=== PATIENT | female | born 1960 | race American Indian/Alaskan Native ===

== ENCOUNTER 2020-06-18 07:23 | Outpatient (CLI) | payer MEDICAID ==
--- NOTE | 2020-06-18 10:38 | PET Report ---
PET/CT HISTORY: R91.1. Staging of lung cancer. Renal mass. TECHNIQUE: The patient's fasting blood glucose was 91. The patient weighed 240 lbs. The patient wa s injected with 14.4 mCi of FDG in the right forearm at 0814 hours and imaging was started at 0900 ho urs. The patient was imaged from the skull base to the thighs. All CT scans at this location are per formed using CT dose reduction for ALARA by means of automated exposure control. Images were reviewed on a workstation. COMPARISON: None available at this facility FINDINGS: IMAGED BRAIN: Physiologic FDG uptake. NECK: Physiologic FDG uptake. CHEST WALL: Physiologic FDG uptake. MEDIASTINUM: Physiologic FDG uptake. Small calcified subcarinal, precarinal and left hilar lymph nod es are consistent with chronic granulomatous disease. LUNGS: Physiologic FDG uptake. There is a 13 mm well-circumscribed nodule in the medial right upper lobe adjacent to the right atrium. No hypermetabolic activity is appreciated. Max SUV measures 1.7. N o underlying lung disease is appreciated. Scattered calcified granulomas are noted. HEPATOBILIARY: Physiologic FDG uptake. PANCREAS: Physiologic FDG uptake. SPLEEN: Physiologic FDG uptake. KIDNEYS/BLADDER: Physiologic FDG uptake. An approximate 1.4 cm intermediate density exophytic lesion is noted near the midpole of the left kidney. Internal density measures 58 Hounsfield units. Max SUV measures 1.4. ADRENAL GLANDS: Physiologic FDG uptake. GI/MESENTERY: Physiologic FDG uptake. PELVIC VISCERA: Physiologic FDG uptake. Hysterectomy changes. LYMPH NODES: Physiologic FDG uptake. OSSEOUS STRUCTURES: Physiologic FDG uptake. ADDITIONAL FINDINGS: None. IMPRESSION: Negative PET CT. A well-circumscribed 13 mm right upper lobe nodule is identified. No hypermetabolic activity. There i s evidence for chronic granulomatous disease in the chest. This could represent a noncalcified granul ann. Consider follow-up in 6 months. 1.4 cm left renal lesion is also hypometabolic as described above. This probably represents a cyst wi th hemorrhagic debris or proteinaceous debris. If further evaluation is needed, renal ultrasound or C T with IV contrast or MRI with IV contrast is recommended. Signer Name: Hollis Johnson Jr, MD Signed: 06/18/2020 10:33 AM Workstation Name: [id number]
== END 2020-06-18 07:24 | disposition home or self-care (01) ==
LOC: PET 07:23
PROVIDERS: ATTEND Internal Medicine
DX: C34.90 Malignant neoplasm of unspecified part of unspecified bronchus or lung (principal); R91.1 Solitary pulmonary nodule; J84.10 Pulmonary fibrosis, unspecified
CPT/HCPCS: 78815; 82962; A9552